=== PATIENT | female | born 1970 | race Caucasian/White ===

== ENCOUNTER 2018-03-24 04:47 | Outpatient (CLI) | payer OTHER, SELFPAY ==
[2018-03-24 12:17] LABS: Anion Gap 11.4 mmol/L (3-11); BUN 19 mg/dL (7-18); CO2 28.6 mmol/L (21.0-32.0); CREATININE 0.85 mg/dL (0.55-1.02); Calcium 9.5 mg/dL (8.5-10.1); Chloride 101 mmol/L (98-107); Glucose 98 mg/dL (70-100); Potassium 3.1 mmol/L (3.5-5.1); Sodium 141 mmol/L (136-145)
== END 2018-03-24 04:48 ==
PROVIDERS: PCP Nurse Practitioner Family; Visit Provider Nurse Practitioner Family
DX: I10 Essential (primary) hypertension (principal)
CPT/HCPCS: 36415; 80048

== ENCOUNTER 2018-05-19 20:47 | Emergency (ER) | payer OTHER, SELFPAY ==
--- NOTE | 2018-05-19 23:38 | NUR.NOTE ---
Nursing Note: This music writer brought patient back to room 3 and connected her to the obstetrical tech. Patient looked at her rhythem on the monitor and then refused the EKG and removed the Leads and decided to not be seen in the ER any longer. This music writer noted her Rate to be in the 70's with a rhythm of NSR.
== END 2018-05-19 20:50 ==
LOC: ER 05-20 06:15
PROVIDERS: PCP Nurse Practitioner Family
DX: Z53.21 Procedure and treatment not carried out due to patient leaving prior to being seen by health care provider (principal)

== ENCOUNTER 2018-06-20 22:50 | Emergency (ER) | payer OTHER, SELFPAY ==
[2018-06-20 23:01] VITALS: BP 152/112; PULSE 65; RESP 16; TEMP 36.8; O2SAT 96
[2018-06-20] MEDS: Normal Saline 1,000 ML 1000 ML IV (23:10)
--- NOTE | 2018-06-20 23:10 | W.ED.GENAD ---
Discharge Plan Disposition Patient Disposition: HOME Condition: Improving Discharge Details Chief Complaint: Headache Clinical Impression: Hypertension Primary Care Provider: Kathy Otto ED Provider: Mike Hernandez Home Meds and New Rx's Prescriptions: Continue fluoxetine [Prozac] 20 MG capsule 20 mg PO DAILY Qty: 60 RF: 6 ibuprofen 200 MG tablet 800 mg PO PRN PRNRF: 0 hydrochlorothiazide 12.5 MG capsule 12.5 mg PO DAILY 7 Days Qty: 7 RF: 0 lisinopril 10 MG tablet 10 mg PO DAILY RF: 0 ibuprofen 600 MG tablet 600 mg PO Q6H PRN (Reason: Pain) Qty: 20 RF: 0 cyclobenzaprine 10 MG tablet 10 mg PO TID PRN (Reason: Muscle Spasm) Qty: 15 RF: 0 Discharge Instructions Instructions: Hypertension (ED) Additional Instructions: Home to rest this evening. Please call the office to get a follow-up appointment with Kathy Herring in clinic for recheck in the next 5-7 days time. Resume your regular medications. Return to the emergency department for any acute concerns Medical Decision Making 47-year-old female presents emergency room complaining of headache. 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 She is a history of hypertension and has run out of her hydrochlorothiazide for the past 3 days. She woke with a mild headache this evening which progressed. She had forgotten to take her lisinopril but did take it 1 hour prior to presentation. She arrives with hypertension approximate 165/95, an exam that is reassuring. Differential diagnosis includes migraine type cephalgia, hypertensive urgency. Patient had screening laboratories obtained, referred for EKG, was given fluids, ketorolac, antiemetic, as well as her prescribed hydrochlorothiazide. Laboratories are within normal limits. The patient is improved as is her blood pressure. I will offer her a bridging prescription of hydrochlorothiazide and ask her to follow-up with primary care for recheck. She stable for outpatient management at this time Lab Data Lab results reviewed: Yes I reviewed the patient's lab results. Laboratory Results - last 24 hr 06/20/18 06/20/18 23:25 23:25 WBC 8.83 RBC 4.56 Hgb 13.7 Hct 39.6 MCV 86.8 MCH 30.0 MCHC 34.6 RDW 12.6 Plt Count 239 MPV 10.5 Immature Gran % 0.1 Neutrophils % 63.5 Lymphocytes % 27.6 Monocytes % 7.4 Eosinophils % 0.9 Basophils % 0.5 Absolute Neutrophils 5.61 Absolute Lymphocytes 2.44 Absolute Monocytes 0.65 Absolute Eosinophils 0.08 Absolute Basophils 0.04 Sodium 138 Potassium 3.6 Chloride 100 Carbon Dioxide 28.8 Anion Gap 9.2 BUN 13 Creatinine 0.61 Estimated GFR/1.73 m2 >= 60.00 Glucose 101 H Calcium 9.2 Total Bilirubin 0.2 AST 14 L ALT 27 Alkaline Phosphatase 84 Troponin I < 0.02 Total Protein 7.4 Albumin 3.9 ECG Data Attestation: I personally reviewed and interpreted this ECG (s) as follows: Interpretation: Sinus rhythm, rate of 55, QRS is narrow, there is no ST segment elevation HPI General Mode of arrival: ambulatory. Date/Time Provider Initiated Documentation: 06/20/18 22:51. Limitations to Documentation: no limitations. Information obtained by: patient. History of Present Illness 47 year old F presents to the emergency department with the chief complaint of Headache, described as moderate, Quality is described as aching, and is localized to the head. Patient reports no radiation. Patient started experiencing this hour(s) and it has been constant. No relieving factors improve symptom(s), No exacerbating factors reported . 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 She has history of hypertension, has run out of her hydrochlorothiazide and not had it for 3 days. States she slept normally following yesterday's mine shifter, awoke at 415 and had a mild to moderate dull, achy headache. She forgot to take her antihypertensives and the headache progressed during the course of her early evening shift. It is been constant and associated with blurry vision during a period of exertion. She denies chest pain, palpitations, shortness of breath. She has been eating and drinking normally. Related Data Home Medications Medication Instructions Recorded Confirmed fluoxetine [Prozac] 20 mg PO DAILY #60 tab-cap 01/02/17 06/20/18 ibuprofen 800 mg PO PRN PRN 01/31/17 07/09/17 cyclobenzaprine 10 mg PO TID PRN #15 tab 07/09/17 06/20/18 ibuprofen 600 mg PO Q6H PRN #20 tab 07/09/17 lisinopril 10 mg PO DAILY 07/09/17 06/20/18 hydrochlorothiazide 12.5 mg PO DAILY 7 Days #7 cap 06/21/18 Previous Rx's Medication Instructions Recorded cyclobenzaprine 10 mg PO TID PRN #15 tab 07/09/17 ibuprofen 600 mg PO Q6H PRN #20 tab 07/09/17 hydrochlorothiazide 12.5 mg PO DAILY 7 Days #7 cap 06/21/18 Allergies Allergy/AdvReac Type Severity Reaction Status Date / Time asparagus Allergy Severe Other (See Unverified 06/20/18 23:20 Comment) cat dander Allergy broncospasm Unverified 06/20/18 23:05 General Stated Complaint: Headache RACHELLE: 3 Review of Systems Review of Systems 8 systems reviewed and otherwise neg PFSH Family History Grandmother No problems noted. Mother Essential hypertension Hyperlipidemia Medical History Asthma BMI 38.0-38.9,adult Lesion of labia PMDD (premenstrual dysphoric disorder) Tobacco use Social History Smoking/Tobacco Use Status: Former Tobacco Use Surgical History Ligation of fallopian tube Tonsillectomy and adenoidectomy Exam Narrative Exam Narrative: GEN: awake, alert, oriented 3. Pleasant, well groomed, interactive. HEAD: Normocephalic, atraumatic ENT: Mucous membranes moist, oropharynx unremarkable, External ear exam unremarkable EYES: PERRL, EOMI NECK: Full ROM, no DARRELL, no menigismus CHEST/RESP: Nontender, clear to auscultation bilateral, no wheeze/rhonchi/rales CARDIOVASCULAR: RRR, no murmur, rub camryn. 2+ Rad pulse bilateral ABDOMEN: Soft, nontender, no mass. +Bowel sounds EXT: Full ROM, no edema, no rash Neuro: Grossly normal neurologic exam, conversant, interactive. Psych: Speech fluent, thoughts congruent, affect normal Course Vital Signs Temperature 36.8 C 06/20/18 23:01 Pulse 65 06/20/18 23:01 Respiratory Rate 16 06/20/18 23:01 Blood Pressure 152/112 H 06/20/18 23:01 Pulse Oximetry 96 06/20/18 23:01 Temperature 36.8 C 06/20/18 23:01 Temperature Source Temporal Artery Scan 06/20/18 23:01 Pulse 65 06/20/18 23:01 Respiratory Rate 16 06/20/18 23:01 Respiratory Effort 06/20/18 23:06 Blood Pressure 152/112 H 06/20/18 23:01 Blood Pressure Position Sitting 06/20/18 23:01 Pulse Oximetry 96 06/20/18 23:01 Oxygen Delivery Method Room Air 06/20/18 23:01 Oxygen Flow Rate 0 06/20/18 23:01
--- NOTE | 2018-06-20 23:13 | ED.GENADUL_ITS ---
Discharge Plan Disposition Patient Disposition: HOME Condition: Improving Discharge Details Chief Complaint: Headache Clinical Impression: Hypertension Primary Care Provider: Kathy Otto ED Provider: Mike Hernandez Home Meds and New Rx's Prescriptions: Continue fluoxetine [Prozac] 20 MG capsule 20 mg PO DAILY Qty: 60 RF: 6 ibuprofen 200 MG tablet 800 mg PO PRN PRNRF: 0 hydrochlorothiazide 12.5 MG capsule 12.5 mg PO DAILY 7 Days Qty: 7 RF: 0 lisinopril 10 MG tablet 10 mg PO DAILY RF: 0 ibuprofen 600 MG tablet 600 mg PO Q6H PRN (Reason: Pain) Qty: 20 RF: 0 cyclobenzaprine 10 MG tablet 10 mg PO TID PRN (Reason: Muscle Spasm) Qty: 15 RF: 0 Discharge Instructions Instructions: Hypertension (ED) Additional Instructions: Home to rest this evening. Please call the office to get a follow-up appointment with Kathy Herring in clinic for recheck in the next 5-7 days time. Resume your regular medications. Return to the emergency department for any acute concerns Medical Decision Making 47-year-old female presents emergency room complaining of headache. 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 She is a history of hypertension and has run out of her hydrochlorothiazide for the past 3 days. She woke with a mild headache this evening which progressed. She had forgotten to take her lisinopril but did take it 1 hour prior to presentation. She arrives with hypertension approximate 165/95, an exam that is reassuring. Differential diagnosis includes migraine type cephalgia, hypertensive urgency. Patient had screening laboratories obtained, referred for EKG, was given fluids , ketorolac, antiemetic, as well as her prescribed hydrochlorothiazide. Laboratories are within normal limits. The patient is improved as is her blood pressure. I will offer her a bridging prescription of hydrochlorothiazide and ask her to follow-up with primary care for recheck. She stable for outpatient management at this time Lab Data Lab results reviewed: Yes I reviewed the patient's lab results. Laboratory Results - last 24 hr 06/20/18 06/20/18 23:25 23:25 WBC 8.83 RBC 4.56 Hgb 13.7 Hct 39.6 MCV 86.8 MCH 30.0 MCHC 34.6 RDW 12.6 Plt Count 239 MPV 10.5 Immature Gran % 0.1 Neutrophils % 63.5 Lymphocytes % 27.6 Monocytes % 7.4 Eosinophils % 0.9 Basophils % 0.5 Absolute Neutrophils 5.61 Absolute Lymphocytes 2.44 Absolute Monocytes 0.65 Absolute Eosinophils 0.08 Absolute Basophils 0.04 Sodium 138 Potassium 3.6 Chloride 100 Carbon Dioxide 28.8 Anion Gap 9.2 BUN 13 Creatinine 0.61 Estimated GFR/1.73 m2 >= 60.00 Glucose 101 H Calcium 9.2 Total Bilirubin 0.2 AST 14 L ALT 27 Alkaline Phosphatase 84 Troponin I < 0.02 Total Protein 7.4 Albumin 3.9 ECG Data Attestation: I personally reviewed and interpreted this ECG (s) as follows: Interpretation: Sinus rhythm, rate of 55, QRS is narrow, there is no ST segment elevation HPI General Mode of arrival: ambulatory . Date/Time Provider Initiated Documentation: 06/20/18 22:51 . Limitations to Documentation: no limitations . Information obtained by: patient . History of Present Illness 47 year old F presents to the emergency department with the chief complaint of Headache, described as moderate, Quality is described as aching, and is localized to the head. Patient reports no radiation. Patient started experiencing this hour(s) and it has been constant. No relieving factors improve symptom(s), No exacerbating factors reported . 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 She has history of hypertension, has run out of her hydrochlorothiazide and not had it for 3 days. States she slept normally following yesterday's power and recovery shift engineer , awoke at 415 and had a mild to moderate dull, achy headache. She forgot to take her antihypertensives and the headache progressed during the course of her early evening shift. It is been constant and associated with blurry vision during a period of exertion. She denies chest pain, palpitations, shortness of breath. She has been eating and drinking normally. Related Data Home Medications Medication Instructions Recorded Confirmed fluoxetine [Prozac] 20 mg PO DAILY #60 tab-cap 01/02/17 06/20/18 ibuprofen 800 mg PO PRN PRN 01/31/17 07/09/17 cyclobenzaprine 10 mg PO TID PRN #15 tab 07/09/17 06/20/18 ibuprofen 600 mg PO Q6H PRN #20 tab 07/09/17 lisinopril 10 mg PO DAILY 07/09/17 06/20/18 hydrochlorothiazide 12.5 mg PO DAILY 7 Days #7 cap 06/21/18 Previous Rx's Medication Instructions Recorded cyclobenzaprine 10 mg PO TID PRN #15 tab 07/09/17 ibuprofen 600 mg PO Q6H PRN #20 tab 07/09/17 hydrochlorothiazide 12.5 mg PO DAILY 7 Days #7 cap 06/21/18 Allergies Allergy/AdvReac Type Severity Reaction Status Date / Time asparagus Allergy Severe Other (See Unverified 06/20/18 23:20 Comment) cat dander Allergy broncospasm Unverified 06/20/18 23:05 General Stated Complaint: Headache RACHELLE: 3 Review of Systems Review of Systems 8 systems reviewed and otherwise neg PFSH Family History Grandmother No problems noted. Mother Essential hypertension Hyperlipidemia Medical History Asthma BMI 38.0-38.9,adult Lesion of labia PMDD (premenstrual dysphoric disorder) Tobacco use Social History Smoking/Tobacco Use Status: Former Tobacco Use Surgical History Ligation of fallopian tube Tonsillectomy and adenoidectomy Exam Narrative Exam Narrative: GEN: awake, alert, oriented 3. Pleasant, well groomed, interactive. HEAD: Normocephalic, atraumatic ENT: Mucous membranes moist, oropharynx unremarkable, External ear exam unremarkable EYES: PERRL, EOMI NECK: Full ROM, no DARRELL, no menigismus CHEST/RESP: Nontender, clear to auscultation bilateral, no wheeze/rhonchi/rales CARDIOVASCULAR: RRR, no murmur, rub camryn. 2+ Rad pulse bilateral ABDOMEN: Soft, nontender, no mass. +Bowel sounds EXT: Full ROM, no edema, no rash Neuro: Grossly normal neurologic exam, conversant, interactive. Psych: Speech fluent, thoughts congruent, affect normal Course Vital Signs Temperature 36.8 C 06/20/18 23:01 Pulse 65 06/20/18 23:01 Respiratory Rate 16 06/20/18 23:01 Blood Pressure 152/112 H 06/20/18 23:01 Pulse Oximetry 96 06/20/18 23:01 Temperature 36.8 C 06/20/18 23:01 Temperature Source Temporal Artery Scan 06/20/18 23:01 Pulse 65 06/20/18 23:01 Respiratory Rate 16 06/20/18 23:01 Respiratory Effort 06/20/18 23:06 Blood Pressure 152/112 H 06/20/18 23:01 Blood Pressure Position Sitting 06/20/18 23:01 Pulse Oximetry 96 06/20/18 23:01 Oxygen Delivery Method Room Air 06/20/18 23:01 Oxygen Flow Rate 0 06/20/18 23:01
[2018-06-20 23:19] VITALS: BP 148/87; PULSE 69; PULSE 72; RESP 13; O2SAT 97
[2018-06-20 23:30] LABS: Abs Immature Grans 0.01 k/cumm (0.0-0.09); Absolute Basophil Count 0.04 k/cumm (0.0-0.2); Absolute Eosinophil Count 0.08 k/cumm (0.0-0.7); Absolute Lymphocyte Count 2.44 k/cumm (1.2-3.4); Absolute Monocyte Count 0.65 k/cumm (0.11-0.7); Absolute Neutrophil Count 5.61 k/cumm (1.2-6.7); Basophils % 0.5; Eosinophils % 0.9; HCT 39.6 % (36.0-46.0); HGB 13.7 g/dL (12.0-15.5); Immature Grans % 0.1; Lymphocytes % 27.6; Mean Corp. HGB Concentration 34.6 g/dL (32.0-36.0); Mean Corpuscular Volume 86.8 fL (80-95); Mean Platelet Volume 10.5 fL (8.0-11.0); Monocytes % 7.4; Neutrophils % 63.5; Platelet Count 239 x1000/uL (130-400); RBC 4.56 m/cumm (4.00-5.20); RBC Distribution Width 12.6 % (11.7-14.6); White Blood Cell Count 8.83 k/cumm (4.4-10.8)
[2018-06-20 23:31] VITALS: BP 142/89; PULSE 67; RESP 23; O2SAT 93
[2018-06-20] MEDS: Ketorolac 30 MG/ML VIAL IVP (23:37)
[2018-06-20] MEDS: Ondansetron 4 MG/2 ML VIAL IVP (23:38)
[2018-06-20 23:45] LABS: ALT 27 U/L (12-78); AST 14 U/L (15-37); Albumin 3.9 g/dL (3.4-5.0); Alkaline Phosphatase 84 U/L (46-116); Anion Gap 9.2 mmol/L (3-11); BUN 13 mg/dL (7-18); Bilirubin, Total 0.2 mg/dL (0.2-1.0); CO2 28.8 mmol/L (21.0-32.0); CREATININE 0.61 mg/dL (0.55-1.02); Calcium 9.2 mg/dL (8.5-10.1); Chloride 100 mmol/L (98-107); Glucose 101 mg/dL (70-100); Potassium 3.6 mmol/L (3.5-5.1); Sodium 138 mmol/L (136-145); Total Protein 7.4 g/dL (6.4-8.2); Troponin I < 0.02 ng/mL (0.00-0.06)
[2018-06-20 23:46] VITALS: BP 129/78; PULSE 59; PULSE 72; RESP 14; O2SAT 92
[2018-06-21 00:31] VITALS: BP 134/81; PULSE 66; RESP 14; O2SAT 97
[2018-06-21 00:35] VITALS: BP 130/75; PULSE 61; RESP 14; TEMP 36.4; O2SAT 96
== END 2018-06-21 00:35 | disposition home or self-care (01) ==
PROVIDERS: Emergency Provider Emergency Medicine; PCP Nurse Practitioner Family
DX: I10 Essential (primary) hypertension (principal); R51 Headache; T46.5X6A Underdosing of other antihypertensive drugs, initial encounter
CPT/HCPCS: 36415; 80053; 93005; 96361; 96374; 96375; 99284; 84484; 85025; 93010; J1885; J2405

== ENCOUNTER 2019-08-17 11:14 | Emergency (ER) | payer OTHER, SELFPAY ==
[2019-08-17 11:21] VITALS: BP 191/102; PULSE 113; RESP 20; TEMP 36.6; O2SAT 88
--- NOTE | 2019-08-17 11:39 | ED.GENADUL_ITS ---
Discharge Plan Disposition Patient Disposition: HOME Condition: Improving Discharge Details Chief Complaint: RespSymp Clinical Impression: Acute bronchitis with bronchospasm Primary Care Provider: Kathy Otto ED Provider: Mike Hernandez Home Meds and New Rx's Prescriptions: New cefpodoxime 200 mg tablet 200 mg PO BID Qty: 18 RF: 0 prednisone 20 mg tablet 40 mg PO DAILY 5 Days Qty: 10 RF: 0 benzonatate [Tessalon Perles] 100 mg capsule 100 mg PO BID-TID PRN (Reason: cough) Qty: 20 RF: 0 Continued ibuprofen 200 MG tablet 800 mg PO PRN PRNRF: 0 Discharge Instructions Instructions: Acute Bronchitis (ED), Bronchospasm (ED) Additional Instructions: Please take course of prednisone and antibiotics as prescribed. May use albuterol inhaler 2 puffs every 4 hours if needed. Return if you feel you are requiring increased frequency of use of the inhaler. Use Tessalon as prescribed, as needed for cough. May use Robitussin if needed for persistent cough. No muscle relaxers or alcohol with this medication Home to rest today. Small, frequent sips of fluids to maintain hydration. Continue efforts to decrease tobacco use. Please follow-up with Kathy Hardin if not improving in 3 to 5 days time. Return to the emergency department for any acute concern. 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 She presents with 2 days of cough, congestion, wheeze at home. Decreased cigarette use due to illness. She arrives with a room air sat of 88%, mild tachycardia, mild hypertension. Cough and wheeze noted on exam. Differential diagnosis includes bronchitis with COPD exacerbation, pneumonia, influenza. IV placed, laboratories obtained, flu swab obtained, patient referred for chest x-ray and given DuoNeb and parenteral steroid. Chest x-ray read as negative but a question developing right upper lobe pneumonia. Patient given ceftriaxone in the ED. Her potassium is slightly low at 3.1 and supplemented in the ER as well. White blood cell count is 7.5 hematocrit 42 complete was 251. Patient improving with above interventions. For her bronchospasm, she will benefit from a burst of prednisone as well as ongoing use of albuterol as needed during time of illness. She will continue her efforts to decrease cigarette use. As I am concerned for developing pneumonia, will treat with a course of Cefpodoxime. Will offer her antitussives for home as well. Lab Data Lab results reviewed: Yes I reviewed the patient's lab results. Labs: Laboratory Results - last 24 hr 08/17/19 08/17/19 12:00 12:00 WBC 7.54 RBC 5.09 Hgb 14.6 Hct 42.3 MCV 83.1 MCH 28.7 MCHC 34.5 RDW 13.0 Plt Count 251 MPV 10.5 Immature Gran % 0.1 Neutrophils % 65.9 Lymphocytes % 19.1 Monocytes % 13.8 Eosinophils % 0.8 Basophils % 0.3 Absolute Neutrophils 4.97 Absolute Lymphocytes 1.44 Absolute Monocytes 1.04 H Absolute Eosinophils 0.06 Absolute Basophils 0.02 Sodium 138 Potassium 3.1 L Chloride 98 Carbon Dioxide 26.9 Anion Gap 13.1 H BUN 8 Creatinine 0.68 Estimated GFR/1.73 m2 >= 60.00 Glucose 104 Calcium 9.1 Total Bilirubin 0.4 AST 20 ALT 30 Alkaline Phosphatase 89 Total Protein 7.7 Albumin 3.8 HPI General Mode of arrival: ambulatory . Date/Time Provider Initiated Documentation: 08/17/19 11:28 . Limitations to Documentation: no limitations . Information obtained by: patient . History of Present Illness 49 year old F presents to the emergency department with the chief complaint of Cough, congestion, wheeze., described as moderate, Quality is described as constant, and is localized to the chest. Patient reports no radiation. Patient started experiencing this day(s) and it has been constant. No relieving factors improve symptom(s), No exacerbating factors reported . Patient notes cough and shortness of breath. Related Data Home Medications Medication Instructions Recorded Confirmed ibuprofen 800 mg PO PRN PRN 01/31/17 08/17/19 benzonatate [Tessalon Perles] 100 mg PO BID-TID PRN #20 cap 08/17/19 cefpodoxime 200 mg PO BID #18 tab 08/17/19 prednisone 40 mg PO DAILY 5 Days #10 tab 08/17/19 Previous Rx's Medication Instructions Recorded benzonatate [Tessalon Perles] 100 mg PO BID-TID PRN #20 cap 08/17/19 cefpodoxime 200 mg PO BID #18 tab 08/17/19 prednisone 40 mg PO DAILY 5 Days #10 tab 08/17/19 Allergies Allergy/AdvReac Type Severity Reaction Status Date / Time asparagus Allergy Severe Other (See Unverified 08/17/19 11:25 Comment) cat dander Allergy broncospasm Unverified 08/17/19 11:25 General Stated Complaint: RespSymp RACHELLE: 3 Review of Systems Narrative: 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 Eating and drinking, mild malaise. Sick systems reviewed and otherwise negative. 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 PMDD (premenstrual dysphoric disorder) used luteal phase prozac in past. Tobacco use Social History Smoking/Tobacco Use Status: Current every day Tobacco Type: cigarettes Alcohol Intake: current Alcohol Intake frequency: a few times a week Drug use: Never Substance use type: does not use Do you feel safe at home: Yes Do you feel safe in your relationship?: Yes Exam Narrative Exam Narrative: GEN: awake, alert, oriented 3. Pleasant, well groomed, interactive. HEAD: Normocephalic, atraumatic ENT: Mucous membranes moist, oropharynx unremarkable, External ear exam unremarkable EYES: PERRL, EOMI NECK: Full ROM, no DARRELL, no menigismus CHEST/RESP: Nontender, cough noted, bilateral end expiratory wheeze CARDIOVASCULAR: RRR, no murmur, rub camryn. 2+ Rad pulse bilateral ABDOMEN: Soft, nontender, no mass. +Bowel sounds EXT: Full ROM, no edema, no rash Neuro: Grossly normal neurologic exam, conversant, interactive. Psych: Speech fluent, thoughts congruent, affect normal Course Vital Signs Vital signs: Vital Signs Temperature 36.6 C 08/17/19 11:21 Pulse 113 H 08/17/19 11:21 Respiratory Rate 20 08/17/19 11:21 Blood Pressure 191/102 H 08/17/19 11:21 Pulse Oximetry 88 L 08/17/19 11:21 Temperature 36.6 C 08/17/19 11:21 Temperature Source Skin 08/17/19 11:21 Pulse 113 H 08/17/19 11:21 Respiratory Rate 20 08/17/19 11:21 Respiratory Effort 08/17/19 11:26 Blood Pressure 191/102 H 08/17/19 11:21 Pulse Oximetry 88 L 08/17/19 11:21 Pain Level 0 08/17/19 11:21
[2019-08-17 11:43] VITALS: PULSE 113; RESP 20; RESP 8; O2SAT 88
[2019-08-17] MEDS: Albuterol/Ipratropium 3 ML UPD VIAL UPD ×2 (11:43→12:43)
[2019-08-17] MEDS: methylPREDNISolone SUCC 125 MG VIAL IVP (11:53)
[2019-08-17] MEDS: Normal Saline 1,000 ML 1000 ML IV (11:53)
[2019-08-17] MEDS: Ketorolac 15 MG/ML VIAL IVP (11:54)
--- NOTE | 2019-08-17 12:17 | DI.RAD_ITS ---
EXAM: XR CHEST 2V PA LATERAL INDICATION: Cough, wheeze. COMPARISON: No exams were available for comparison TECHNIQUE: 2D digital imaging was performed. FINDINGS: Heart size and pulmonary vasculature within normal limits. There appear to be bronchiectatic changes in the right upper lobe. Increased lung markings are also noted in the right upper lobe. This may r epresent atelectasis or pneumonia. The lungs are otherwise clear. No effusions or pneumothoraces ar e identified. Degenerative changes are seen in the spine. IMPRESSION: 1. Right upper lobe infiltrate. This may represent atelectasis or pneumonia. 2. Apparent bronchiectatic changes in the right upper lobe. Nonemergent high-resolution CT scan shou ld be considered in this patient.
[2019-08-17 12:32] LABS: Abs Immature Grans 0.01 k/cumm (0.0-0.09); Absolute Basophil Count 0.02 k/cumm (0.0-0.2); Absolute Eosinophil Count 0.06 k/cumm (0.0-0.7); Absolute Lymphocyte Count 1.44 k/cumm (1.2-3.4); Absolute Monocyte Count 1.04 k/cumm (0.11-0.7); Absolute Neutrophil Count 4.97 k/cumm (1.2-6.7); Basophils % 0.3; Eosinophils % 0.8; HCT 42.3 % (36.0-46.0); HGB 14.6 g/dL (12.0-15.5); Immature Grans % 0.1; Lymphocytes % 19.1; Mean Corp. HGB Concentration 34.5 g/dL (32.0-36.0); Mean Corpuscular Hemoglobin 28.7 pg (27.0-33.0); Mean Corpuscular Volume 83.1 fL (80-95); Mean Platelet Volume 10.5 fL (8.0-11.0); Monocytes % 13.8; Neutrophils % 65.9; Platelet Count 251 x1000/uL (130-400); RBC 5.09 m/cumm (4.00-5.20); White Blood Cell Count 7.54 k/cumm (4.4-10.8)
--- NOTE | 2019-08-17 12:51 | DI.VRAD_ITS ---
PROCEDURE INFORMATION: Exam: XR Chest, 2 Views Exam date and time: 08/17/2019 12:17 PM Age: 49 years old Clinical indication: Cough and wheezing; Patient HX: Cough, wheezing TECHNIQUE: Imaging protocol: XR of the chest Views: 2 views. COMPARISON: No relevant prior studies available. FINDINGS: Lungs: No significant consolidation. Pleural space: No pleural effusion. No pneumothorax. Heart/Mediastinum: No significant cardiomegaly. Bones/joints: Unremarkable for age. IMPRESSION: No acute findings. Dictated and Authenticated by: Branden Montoya MD. Ordering:TERESA Mckeon MD
[2019-08-17 12:57] LABS: ALT 30 U/L (14-59); AST 20 U/L (15-37); Albumin 3.8 g/dL (3.4-5.0); Alkaline Phosphatase 89 U/L (46-116); Anion Gap 13.1 mmol/L (3-11); BUN 8 mg/dL (7-18); Bilirubin, Total 0.4 mg/dL (0.2-1.0); CO2 26.9 mmol/L (21.0-32.0); CREATININE 0.68 mg/dL (0.55-1.02); Calcium 9.1 mg/dL (8.5-10.1); Chloride 98 mmol/L (98-107); Glucose 104 mg/dL (74-106); Potassium 3.1 mmol/L (3.5-5.1); Sodium 138 mmol/L (136-145); Total Protein 7.7 g/dL (6.4-8.2)
[2019-08-17] MEDS: cefTRIAXone 1 GM/50 ML BAG IVPB (13:01)
[2019-08-17] MEDS: Benzonatate 100 MG CAP 200 MG PO (13:03)
[2019-08-17] MEDS: guaiFENesin/D-METHORPHAN HB 5 ML CUP 10 ML PO (13:11)
[2019-08-17] MEDS: Potassium Chloride Liquid 20 MEQ PKT PO (13:12)
[2019-08-17] MEDS: POTASSIUM CHLORIDE/0.9% NACL 1,000 ML 150 MEQ IV (13:18)
[2019-08-17 13:23] VITALS: PULSE 109; RESP 20; O2SAT 93
[2019-08-17 14:44] VITALS: BP 155/82; PULSE 96; RESP 18; O2SAT 93
[2019-08-17 15:34] VITALS: PULSE 95; RESP 18; O2SAT 95
[2019-08-17] MEDS: Albuterol HFA 8 GM 60 PUFF INH IH (15:35)
[2019-08-17] MEDS: guaiFENesin/CODEINE PHOSPHATE 10 ML CUP PO (15:36)
== END 2019-08-17 15:47 | disposition home or self-care (01) ==
PROVIDERS: Emergency Provider Emergency Medicine; PCP Nurse Practitioner Family
DX: R06.02 Shortness of breath (principal); R50.9 Fever, unspecified; R51 Headache; J20.9 Acute bronchitis, unspecified; R09.02 Hypoxemia; F17.210 Nicotine dependence, cigarettes, uncomplicated; E87.6 Hypokalemia
CPT/HCPCS: 36415; 80053; 87449; 94640; 96361; 96365; 96368; 96375; 99284; 71046; 85025; J0696; J1885; J2930; J7620

== ENCOUNTER 2020-01-03 14:00 | Outpatient (REF) | payer OTHER, SELFPAY ==
[2020-01-04 13:31] LABS: COVID-19 RT-PCR UVMMC Result Negative (Negative)
== END 2020-01-03 14:20 ==
LOC: NCHCN 14:00
PROVIDERS: PCP Nurse Practitioner Family; Visit Provider Physician Assistant
DX: R06.02 Shortness of breath (principal)
CPT/HCPCS: U0003

== ENCOUNTER 2020-08-13 03:02 | Outpatient (REF) | payer OTHER, SELFPAY ==
[2020-08-14 21:52] LABS: COVID-19 RT-PCR UVMMC Result Negative (Negative)
== END 2020-08-13 03:22 ==
LOC: LBO 03:02
PROVIDERS: PCP Nurse Practitioner Family; Visit Provider Nurse Practitioner Family
DX: Z11.59 Encounter for screening for other viral diseases (principal)
CPT/HCPCS: U0003

== ENCOUNTER 2020-10-10 13:21 | Emergency (ER) | payer SELFPAY | END 2020-10-16 09:47 | PROVIDERS: PCP Nurse Practitioner Family | DX: R69 Illness, unspecified (principal) ==

== ENCOUNTER 2020-10-10 13:24 | Emergency (ER) | payer SELFPAY | END 2020-10-10 13:47 | LOC: ER 13:30 | PROVIDERS: PCP Nurse Practitioner Family | DX: R69 Illness, unspecified (principal) ==

== ENCOUNTER 2020-10-10 17:50 | Emergency (ER) | payer SELFPAY ==
[2020-10-10 18:02] LABS: Source Nasopharynx
--- NOTE | 2020-10-10 18:04 | NUR.NOTE ---
pt in for rapid covid swab. Swab obtained. Pt declined MSE, Declined Vs. speaking in full sentences in no apparent distress, ambulated out with steady gait.
[2020-10-10 18:40] LABS: COVID-19 PCR Negative (Negative); Influenza A PCR Negative (Negative); Influenza B PCR Negative (Negative); RSV PCR Negative (Negative)
--- NOTE | 2020-10-10 19:19 | NUR.NOTE ---
Covid resulted, called pt, no answer., message left to please call back
== END 2020-10-16 09:47 ==
LOC: ER 10-16 09:30
PROVIDERS: Physician Assistant; PCP Nurse Practitioner Family
DX: Z20.822 Contact with and (suspected) exposure to COVID-19 (principal)
CPT/HCPCS: U0003

== ENCOUNTER 2021-10-04 01:35 | Emergency (ER) | payer OTHER, SELFPAY ==
--- NOTE | 2021-10-04 01:30 | DI.CT_ITS ---
Exam(s) CT HEAD WO EXAM: CT HEAD WO CLINICAL HISTORY: pain s/p fall. TECHNIQUE: Imaging Protocol: Axial computed tomography images with coronal and sagittal reformatted images were created and reviewed COMPARISON: No exams were available for comparison FINDINGS: Ventricles and Extra axial spaces: Normal in size and morphology for the patient's age. Hemorrhage: None. Cerebral parenchyma: Normal. Midline shift: None. Brainstem/Cerebellum: Normal. Calvarium: Normal. Visualized Paranasal sinuses/Mastoids: Clear. Soft Tissues: Unremarkable. IMPRESSION: No acute intracranial process. RADIATION DOSE DELIVERED: 717.34mGy.cm Total DLP DATA REPOSITORY: All CT scans at this facility are submitted to the National Radiology Data Registry (NRDR) Dose Index Registry (DIR) with the [employer] (A[employer]). RADIATION OPTIMIZATION: All CT scans at this facility use at least one of these dose optimization te chniques: automated exposure control; mA and/or kV adjustment per patient size (includes targeted exa ms where dose is matched to clinical indication); or iterative reconstruction.
[2021-10-04 01:38] VITALS: BP 229/114; PULSE 90; RESP 18; TEMP 36.6; O2SAT 99
--- NOTE | 2021-10-04 01:45 | ED.GENADUL_ITS ---
Discharge Plan Disposition Patient Disposition: HOME Condition: Stable Discharge Details Chief Complaint: HeadInjury Clinical Impression: Head trauma Primary Care Provider: Kathy Otto ED Provider: Mick Perla Discharge Instructions Additional Instructions: Your cat scan did not show any skull fractures or bleeding in the brain if headaches or issues with memory develop follow up with your primary care provider within a week if you have severe worsening pain, persistent vomit or feel more ill return to the emergency department Medical Decision Making 51 yo female who denies chronic medical problems comes in with head injury. She was at work and sat in a chair and leaned backwards. The back of the seat had been previously broken so when she leaned back it fell back and hit her head on the tile floor. She denies loc but was dizzy and had trouble walking afterwards due to this. She denies preceding symptoms to the fall. She has pain in the posterior right head where she struck, denies bleeding and has no lacs on exam. She is caox4, has posterior right scalp hematoma, no midline c spine tenderness, no chest back or abdomen pain. Suspect concussion but given mechanism, dizziness and pain will obtain CT to evaluate for hemorrhage. She is hypertensive to over 200 systolic on initial exam, but is also having pain and has no symptoms of end organ damage such as chest pain or dyspnea so will hold on acutely lowering at this time unless she has a hemorrhage on CT ct unremarkable and she remains stable, no new pain elsewhere. Stable for d/c, discussed concussion precautions and return precautions given Differential Diagnosis Differential Diagnosis: tbi, concussion Imaging Data Radiologic Study: Radiologist's impression: no acute findings HPI General Date/Time Provider Initiated Documentation: 10/04/21 01:38 . Limitations to Documentation: no limitations . Information obtained by: patient . History of Present Illness 51 year old F presents to the emergency department with the chief complaint of head trauma, described as moderate, Quality is described as aching, and is localized to the head. Patient reports no radiation. Patient started experiencing this minute(s) (30) and it has been constant. improves with No relieving factors improve symptom(s), No exacerbating factors reported . Patient notes other (dizziness after the fall). Patient did receive the following treatments prior to arrival, none Related Data Allergies Allergy/AdvReac Type Severity Reaction Status Date / Time asparagus Allergy Severe Other (See Unverified 07/23/20 10:16 Comment) cat dander Allergy broncospasm Unverified 03/15/20 10:16 General Stated Complaint: HeadInjury RACHELLE: 3 Review of Systems All systems reviewed & are unremarkable except as noted in HPI and below Constitutional Constitutional: Denies chills, Denies fever(s) and Denies weakness Eyes Eyes: Denies loss of vision Cardiovascular Cardiovascular: Denies chest pain Gastrointestinal Gastrointestinal: Denies abdominal pain and Denies vomiting Neurologic Neurologic: Denies loss of vision and Denies weakness PFSH All Active Problems (Updated 10/04/21 @ 02:39 by Mick Perla MD) Head trauma (Acute) Encounter for screening for other viral diseases (Acute) Medical History (Updated 10/04/21 @ 02:39 by Mick Perla MD) Asthma BMI 38.0-38.9,adult Lesion of labia 10/2015 excision of R labial 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 PMDD (premenstrual dysphoric disorder) used luteal phase prozac in past. Tobacco use Surgical History Ligation of fallopian tube 1996 Tonsillectomy and adenoidectomy 2001 Family History Grandmother , colon CA No problems noted. Mother Essential hypertension Hyperlipidemia Social History Smoking/Tobacco Use Status: Current every day Tobacco Type: cigarettes Smoking risk assessment performed?: Yes Alcohol Intake: current Alcohol Intake frequency: a few times a week Drug use: Never Substance use type: does not use Do you feel safe at home: Yes Do you feel safe in your relationship?: Yes Exam Const General: no acute distress Orientation: alert [facility] Head: skull fracture palpable Ears: external ears normal General nose exam: external nose normal Mouth: moist mucous membranes Eyes General: appearance normal, both eyes and all related structures Neck Neck: normal visual inspection Resp Effort & Inspection: normal respiratory effort and able to speak in complete sentences Cardio Rate: regular rate Skin General skin exam: no rashes or lesions noted Neuro General: patient alert and patient oriented x3 Extrem General: normal to inspection Psych Mental Status: mental status grossly normal Course Vital Signs Vital signs: Vital Signs Temperature 36.6 C 10/04/21 01:38 Pulse 90 10/04/21 01:38 Respiratory Rate 18 10/04/21 01:38 Blood Pressure 229/114 H 10/04/21 01:38 Pulse Oximetry 99 10/04/21 01:38 Temperature 36.6 C 10/04/21 01:38 Temperature Source Temporal Artery Scan 10/04/21 01:38 Pulse 90 10/04/21 01:38 Respiratory Rate 18 10/04/21 01:38 Respiratory Effort 10/04/21 01:41 Blood Pressure 229/114 H 10/04/21 01:38 Blood Pressure Position Sitting 10/04/21 01:38 Pulse Oximetry 99 10/04/21 01:38 Pain Level 4 10/04/21 01:38
--- NOTE | 2021-10-04 02:23 | DI.VRAD_ITS ---
PROCEDURE INFORMATION: Exam: CT Head Without Contrast Exam date and time: 10/04/2021 1:45 AM Age: 51 years old Clinical indication: Other: Pain S/P fall TECHNIQUE: Imaging protocol: Computed tomography of the head without contrast. Radiation optimization: All CT scans at this facility use at least one of these dose optimization techniques: automated exposure control; mA and/or kV adjustment per patient size (includes targeted exams where dose is matched to clinical indication); or iterative reconstruction. COMPARISON: No relevant prior studies available. FINDINGS: Brain: Normal. No hemorrhage. Unremarkable white matter. No mass effect. Cerebral ventricles: No ventriculomegaly. Paranasal sinuses: Visualized sinuses are unremarkable. No fluid levels. Mastoid air cells: Visualized mastoid air cells are well aerated. Bones/joints: Unremarkable. No acute fracture. Soft tissues: Unremarkable. IMPRESSION: No acute intracranial abnormality. Dictated and Authenticated by: Neena Stoner MD. Ordering:JOAQUIM Barton MD
[2021-10-04] MEDS: Acetaminophen 500 MG TAB (02:25)
[2021-10-04 02:43] VITALS: BP 174/86; PULSE 85; RESP 18; O2SAT 96
== END 2021-10-04 02:40 | disposition home or self-care (01) ==
LOC: ER 03:29
PROVIDERS: Emergency Provider Emergency Medicine; PCP Nurse Practitioner Family
DX: S09.8XXA Other specified injuries of head, initial encounter (principal); W07.XXXA Fall from chair, initial encounter; Y99.0 Civilian activity done for income or pay; R03.0 Elevated blood-pressure reading, without diagnosis of hypertension
CPT/HCPCS: 99284; 70450; 99283

== ENCOUNTER 2023-05-16 10:05 | Emergency (ER) | payer OTHER, SELFPAY ==
[2023-05-16 10:12] VITALS: BP 197/96; PULSE 79; RESP 18; TEMP 37.1; O2SAT 95
--- NOTE | 2023-05-16 10:34 | W.ED.GENAD ---
Discharge Plan Disposition Patient Disposition: Home Discharge Details Clinical Impression: Injury of knee, left Primary Care Provider: Kathy Otto ED Provider: David Trevino Home Meds and New Rx's Prescriptions: No Action No Known Home Meds Discharge Instructions Instructions: Knee Sprain (ED), R.I.C.E. Treatment (ED) Additional Instructions: You may continue use of [id number] NSAIDs and also acetaminophen as needed for pain control. Apply ice to help with swelling and discomfort and use hinged knee brace to add additional support. It is recommended that you use crutches over the next couple days but you may perform weightbearing as tolerated by pain and stability. I suspect either a lateral ligament or meniscus injury and it is recommended that you follow-up with orthopedic for reassessment and further testing or imaging as needed. Stand Alone Forms: Work Release Referrals: [facility] [Provider Group] (Please call the office on Thursday for arrangement of follow-up appointment) Medical Decision Making Patient presenting to the emergency department for chief complaint of left knee injury. She states that simply while walking her left knee gave out causing her to fall. Since then the knee has been significantly tender and unstable. Patient denies any other injury or trauma. She does state 2 months ago she slipped in the wet grass landing on her left knee which had had some pain and discomfort since but had been doing fine up until today. Physical exam shows lateral knee laxity and tenderness with testing along with lateral tenderness with Mariel's test. Based upon physical exam and injury pattern I suspect lateral ligament versus meniscus injury. We will hold off on x-ray imaging at this time and will place patient in a hinged knee brace, recommend NSAIDs and ice and crutches but weightbearing as tolerated. Patient placed on Ortho follow-up list. After discussion of diagnosis and plan of care patient has no further needs, questions, or concerns and states clear understanding to return to the emergency department for any worsening symptoms. This documentation was generated using [employer] system, please disregard any oddities of phrase or misspellings. HPI General Mode of arrival: wheelchair. Date/Time Provider Initiated Documentation: 05/16/23 10:18. Limitations to Documentation: no limitations. Information obtained by: patient and RN notes reviewed. History of Present Illness 52 year old F presents to the emergency department with the chief complaint of Left knee injury, described as moderate, Quality is described as sharp, and is localized to the left and lower extremity. Patient started experiencing this hour(s) (1) and it has been constant. Immobilization improves symptom(s), Movement worsens symptoms . Patient notes no other symptoms.. Patient did receive the following treatments prior to arrival, NSAID Related Data Home Medications Medication Instructions Recorded Confirmed Unknown [No Known Home Meds] 12/11/21 05/16/23 Allergies Allergy/AdvReac Type Severity Reaction Status Date / Time asparagus Allergy Severe Other (See Unverified 05/16/23 10:18 Comment) cat dander Allergy broncospasm Unverified 05/16/23 10:18 General Stated Complaint: Orthopedic RACHELLE: 4 Review of Systems Narrative: 6 systems reviewed and unremarkable except what is marked below. 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 PMDD (premenstrual dysphoric disorder) used luteal phase prozac in past. Tobacco use Surgical History Ligation of fallopian tube 1996 Tonsillectomy and adenoidectomy 2001 Family History Grandmother , colon CA No problems noted. Mother Essential hypertension Hyperlipidemia Social History Smoking/Tobacco Use Status: Current every day Tobacco Type: cigarettes Smoking risk assessment performed?: Yes Alcohol Intake: current Alcohol Intake frequency: a few times a week Drug use: Never Substance use type: does not use Do you feel safe at home: Yes Do you feel safe in your relationship?: Yes Exam Const General: cooperative, no acute distress and not ill appearing Orientation: alert, awake and oriented x3 HENMT Mouth: moist mucous membranes Resp Effort & Inspection: normal respiratory effort, able to speak in complete sentences and no respiratory distress Cardio Rate: regular rate Rhythm: regular rhythm Skin General skin exam: no rashes or lesions noted Neuro General: patient alert, patient awake, patient oriented x3, moves all extremities and no focal motor deficits Extrem Left lower extremity: knee Details: abnormal ROM Details: pain with active ROM Details: with extension; able to extend lower leg actively, knee ligament exam normal Details: anterior drawer test normal, posterior drawer test normal and valgus stress test normal, knee ligament exam abnormal Details: varus stress test Details: both pain and laxity noted and Mariel's Test Details: negative medially and positive laterally; no tenderness and no swelling Course Vital Signs Vital signs: Vital Signs Temperature 37.1 C 05/16/23 10:12 Pulse 79 05/16/23 10:12 Respiratory Rate 18 05/16/23 10:12 Blood Pressure 197/96 H 05/16/23 10:12 Pulse Oximetry 95 05/16/23 10:12 Temperature 37.1 C 05/16/23 10:12 Temperature Source Skin 05/16/23 10:12 Pulse 79 05/16/23 10:12 Respiratory Rate 18 05/16/23 10:12 Respiratory Effort Normal, Non-Labored 05/16/23 10:22 Blood Pressure 197/96 H 05/16/23 10:12 Blood Pressure Position Sitting 05/16/23 10:12 Pulse Oximetry 95 05/16/23 10:12 Oxygen Delivery Method Room Air 05/16/23 10:12 Oxygen Flow Rate 0 05/16/23 10:12 Pain Level 1 05/16/23 10:12
== END 2023-05-16 10:54 | disposition home or self-care (01) ==
PROVIDERS: Emergency Provider Nurse Practitioner Family; PCP Nurse Practitioner Family
DX: M25.562 Pain in left knee (principal); S89.92XA Unspecified injury of left lower leg, initial encounter
CPT/HCPCS: 29505; 99283

== ENCOUNTER 2023-06-04 15:26 | Outpatient (CLI) | payer OTHER, SELFPAY ==
--- NOTE | 2023-06-04 14:51 | DI.RAD_ITS ---
Exam(s) XR KNEE LT 3V AP,LAT,RANDOLPH EXAM: XR KNEE LT 3V AP,LAT,RANDOLPH CLINICAL HISTORY: left knee pain. TECHNIQUE: 2D digital imaging was performed. Three views. COMPARISON: No exams were available for comparison FINDINGS: BONES: No acute fracture is present. No bony destructive lesion is seen. Enthesophyte at quadricep s insertion on patella. Minimal spurring at the articular aspect of the patella. JOINTS: The knee is normally aligned. No joint effusion is seen. Joint spaces are maintained. SOFT TISSUE: Normal. IMPRESSION: Mild patellofemoral degenerative changes. DATA REPOSITORY: RADIATION DOSE DELIVERED:
== END 2023-06-04 15:27 | disposition home or self-care (01) ==
LOC: DIORS 15:27
PROVIDERS: Visit Provider Physician Assistant
DX: M17.2 Bilateral post-traumatic osteoarthritis of knee (principal)
CPT/HCPCS: 73562

== ENCOUNTER → 2023-07-07 00:36 | Outpatient (CLI) | payer OTHER, SELFPAY ==
--- NOTE | 2023-07-07 07:00 | DI.MRI_ITS ---
Exam(s) MR LOWER JOINT LT WO EXAM: MR LOWER JOINT LT WO CLINICAL HISTORY: pain,internal derangement lt knee, m23.92. TECHNIQUE: Multiplanar multisequence MRI was performed. COMPARISON: CR XR KNEE LT 3V AP,LAT,RANDOLPH from 06/04/2023 FINDINGS: BONES: Edema at patellar apex, degenerative. JOINTS: A small joint effusion is present. Articular cartilage: Patellofemoral joint: Cartilage thinning extending down to bone apex and latera l patellar facet. Medial femoral tibial joint: Mild cartilage thinning and irregularity. Lateral femoral tibial joint: Articular cartilage is unremarkable. TENDONS: Extensor mechanism: Unremarkable. Medial retinaculum: Unremarkable. Lateral retinaculum: Unremarkable. Popliteus: Unremarkable. MUSCLES: Unremarkable. MENISCI: The medial meniscus shows some surrounding fluid. There is a question of a tear at the at t he root. Small amount of linear high signal is seen in the body, horizontal.. The lateral meniscus is unremarkable. SOFT TISSUES: Edema and anterior subcutaneous fat. LIGAMENTS: Anterior Cruciate: Unremarkable. Posterior Cruciate: Unremarkable. Medial Collateral:Unremarkable. Lateral Collateral: Unremarkable. 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 Small horizontal tear in the body of the medial meniscus. Question of additional tear at the root. DATA REPOSITORY:
== END ==
PROVIDERS: Visit Provider Student in an Organized Health Care Education/Training Program
DX: M22.42 Chondromalacia patellae, left knee; S83.241A Other tear of medial meniscus, current injury, right knee, initial encounter; X58.XXXA Exposure to other specified factors, initial encounter
CPT/HCPCS: 73721